=== PATIENT | male | born 1990 | race Caucasian/White ===

== ENCOUNTER 2017-11-08 19:57 | Emergency (ER) | payer BC ==
[~2017-11-08] VITALS: Ht 182.9 cm; Wt 85.4 kg
[~2017-11-08 19:57] MED LIST: AMOXICILLIN875 MG PO; MOTRIN600 MG PO
[2017-11-08 21:58] LABS: HEMATOCRIT 44.6 % (38.0-50.0); HEMOGLOBIN 15.5 G/DL (12.5-16.6); MCH 29.2 PG (29.0-34.0); MCHC 34.8 G/DL (30.0-36.0); MCV 84.2 FL (86-99); PLATELET COUNT 345 K/uL (156-360); RBC DIS.WIDTH-CV 12.6 % (11.8-14.6); RBC DIS.WIDTH-SD 38.7 % (39-53); WHITE BLOOD COUNT 8.4 K/uL (4.1-10.2)
[2017-11-08 22:09] LABS: CHLORIDE 102 mEq/L (99-109); POTASSIUM 3.5 mEq/L (3.7-5.4); SODIUM 139 mEq/L (136-147)
[2017-11-08 22:11] LABS: GLUCOSE 97 mg/dL (70-99)
[2017-11-08 22:15] LABS: CREATININE 0.8 mg/dL (0.6-1.3); GFR ESTIMATE (CALCULATED) > 59 mL/min/ (58.99-99999)
[2017-11-08 22:16] LABS: UREA NITROGEN (BUN) 13 mg/dL (9-23)
[2017-11-08 22:23] LABS: TROP-I INTERPRETATION NEGATIVE; TROPONIN-I < 0.01 ng/mL (0.0-0.30)
[2017-11-08 23:20] VITALS: BP 139/98
== END 2017-11-08 23:23 | disposition home or self-care (01) ==
LOC: EME 19:57
PROVIDERS: Nurse Practitioner Family
DX: R07.9 Chest pain, unspecified (principal)
CPT/HCPCS: 71046; 80048; 84484; 85027; 93005; 99281; 99285